=== PATIENT | female | born 1955 | race Caucasian/White ===

== ENCOUNTER 2024-09-03 20:55 | Emergency (ER) | payer OTHER, MEDICAID, SELFPAY ==
[2024-09-03] VITALS (14 sets, daily range): BP systolic 134–200; BP diastolic 81–102; PULSE 75–99; RESP 18–23; TEMP 36.6; O2SAT 89–98; BMI 34.2
--- NOTE | 2024-09-03 21:06 | EKG_ITS ---
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
--- NOTE | 2024-09-03 21:07 | ED_ITS ---
HPI - Abdominal Pain General Chief Complaint: Abdominal Pain Stated Complaint: abd pain Time Seen by Provider: 09/03/24 21:02 Mode of arrival: EMS History of Present Illness HPI narrative: 69-year-old female with history of bipolar disorder, reports remote ovarian cyst related surgery in her 20s, no other abdominopelvic surgeries, had bowel obstruction treated medically about one year ago in [facility], now with central abdominal pain onset 4:00 p.m. today, increasing pain since then, no fevers or chills. No nausea or vomiting. No diarrhea. No black or red stools. Last bowel movement 7:00 p.m. after onset of pain, did not help or increase the pain. No recent antibiotic exposure recalled. No falls, injury, new activities. Pain is somewhat worse with deep breathing. Can not recall prior diagnosis of ulcers or pancreatitis. Denies history of painful urination or frequency of urination. No prior kidney stones. Related Data Home Medications Medication Instructions Recorded Confirmed Vitamin B-1 1 tab 09/03/24 albuterol sulfate 2.5 mg/3 mL 2.5 mg 09/03/24 (0.083 %) solution for nebulization clonazepam 0.5 mg tablet 0.5 mg PO BID 09/03/24 09/03/24 gabapentin 600 mg tablet 600 mg PO BID 09/03/24 09/03/24 lamotrigine 25 mg tablet 50 mg PO BID 09/03/24 09/03/24 quetiapine 50 mg 09/03/24 quetiapine 100 mg tablet 100 mg 09/03/24 Allergies Allergy/AdvReac Type Severity Reaction Status Date / Time erythromycin base Allergy Verified 09/03/24 21:07 oxycodone Allergy Verified 09/03/24 21:07 prednisolone Allergy Verified 09/03/24 21:07 Exam Narrative Exam Narrative: GENERAL: Well-developed patient, in mild distress. HEAD: Atraumatic. Normocephalic. EYES: Pupils equal round and reactive. Extraocular motions intact. No scleral icterus. No injection or drainage. ENT: Nose without bleeding, purulent drainage. Throat without erythema, tonsillar hypertrophy or exudate. Airway patent. NECK: Trachea midline. Non tender CARDIOVASCULAR: Regular rate and rhythm without murmurs, gallops, or rubs. RESPIRATORY: Clear to auscultation. Breath sounds equal bilaterally. No wheezes, rales, or rhonchi. GASTROINTESTINAL: Abdomen obese, soft, non-tender, nondistended. I could not see ventral scars, no hernias. Normal bowel tones without rushes or tinkles. EXTREMITIES: No edema or joint tenderness. BACK: Nontender without deformity or crepitance. No flank tenderness. NEURO: AOx3. Motor functions grossly nonfocal SKIN: No rash or erythema of visible areas Initial Vital Signs Initial Vital Signs: Vital Signs Temperature 97.9 F 09/03/24 21: Pulse Rate 75 09/03/24 21:01 Respiratory Rate 18 09/03/24 21:01 Blood Pressure 178/100 H 09/03/24 21:01 Pulse Oximetry 97 09/03/24 21:01 Oxygen Delivery Method Room Air 09/03/24 21:01 Course Orders Ordered: ED Orders 09/03/24 21:08 Complete Blood Count AUTO DIFF Stat Comprehensive Metabolic Panel Stat Lipase Stat 09/03/24 21:23 Urinalysis and Microscopic Stat 09/03/24 21:45 CT abdomen pelvis w con Stat Discontinued Medications Albuterol (Albuterol 2.5 Mg/3 Ml Neb (Adult)) 2.5 mg INH NOW ONE Stop: 09/03/24 23:09 Last Admin: 09/03/24 23:14 Dose: 2.5 mg Documented By: EMMANUEL Ketorolac Tromethamine (Ketorolac 30 Mg/Ml Vial) 15 mg IV NOW ONE Stop: 09/03/24 21:46 Last Admin: 09/03/24 21:51 Dose: 15 mg Documented By: EMMANUEL Morphine Sulfate (Morphine 4 Mg/Ml Inj) 4 mg IV NOW ONE Stop: 09/03/24 21:16 Last Admin: 09/03/24 21:26 Dose: 4 mg Documented By: EMMANUEL Ondansetron HCl (Ondansetron 4 Mg/2 Ml Inj) 4 mg IV NOW ONE Stop: 09/03/24 21:16 Last Admin: 09/03/24 21:26 Dose: 4 mg Documented By: EMMANUEL Vital Signs Vital signs: Vital Signs - 8 hr 09/03/24 21:01 09/03/24 21:09 09/03/24 21:30 Temperature 97.9 F Pulse Rate 75 77 78 Respiratory Rate 18 23 Blood Pressure 178/100 H 198/81 H 196/102 H Pulse Oximetry 97 98 97 Oxygen Delivery Method Room Air Oxygen Flow Rate 09/03/24 21:34 09/03/24 22:00 09/03/24 22:02 Temperature Pulse Rate 78 84 89 Respiratory Rate 21 23 18 Blood Pressure 200/95 H 179/86 H Pulse Oximetry 97 95 94 Oxygen Delivery Method Oxygen Flow Rate 09/03/24 22:15 09/03/24 22:30 09/03/24 22:31 Temperature Pulse Rate 92 H 93 H Respiratory Rate 22 22 Blood Pressure 143/85 H Pulse Oximetry 92 91 91 Oxygen Delivery Method Nasal Cannula Nasal Cannula Nasal Cannula Oxygen Flow Rate 2 2 1 09/03/24 23:00 09/03/24 23:10 09/03/24 23:30 Temperature Pulse Rate 97 H Respiratory Rate 21 20 Blood Pressure 134/91 H 136/84 Pulse Oximetry 89 L 91 Oxygen Delivery Method Nasal Cannula Nasal Cannula Oxygen Flow Rate 1 2 09/03/24 23:30 09/03/24 23:31 09/03/24 23:57 Temperature Pulse Rate 99 H Respiratory Rate 23 Blood Pressure 141/81 H Pulse Oximetry 92 91 Oxygen Delivery Method Nasal Cannula Oxygen Flow Rate 1 09/03/24 23:57 09/04/24 00:00 09/04/24 00:00 Temperature Pulse Rate 96 H 92 H Respiratory Rate 22 23 Blood Pressure 141/89 H Pulse Oximetry 91 89 L Oxygen Delivery Method Oxygen Flow Rate 09/04/24 00:30 09/04/24 00:31 09/04/24 00:31 Temperature Pulse Rate 97 H 97 H Respiratory Rate 21 21 Blood Pressure 175/90 H Pulse Oximetry 90 L 90 L Oxygen Delivery Method Room Air Oxygen Flow Rate 09/04/24 01:00 09/04/24 01:00 09/04/24 01:30 Temperature Pulse Rate 98 H 99 H Respiratory Rate 19 20 Blood Pressure 171/90 H Pulse Oximetry 93 93 Oxygen Delivery Method Oxygen Flow Rate 09/04/24 01:31 09/04/24 01:31 09/04/24 02:00 Temperature Pulse Rate 99 H Respiratory Rate 20 Blood Pressure 156/94 H 159/88 H Pulse Oximetry 93 Oxygen Delivery Method Oxygen Flow Rate 09/04/24 02:00 09/04/24 02:30 09/04/24 02:31 Temperature Pulse Rate 97 H 99 H Respiratory Rate 20 40 H Blood Pressure 129/76 Pulse Oximetry 93 92 Oxygen Delivery Method Oxygen Flow Rate 09/04/24 02:31 Temperature Pulse Rate 99 H Respiratory Rate 41 H Blood Pressure Pulse Oximetry 92 Oxygen Delivery Method Oxygen Flow Rate MDM - Abdominal Pain Lab Data Attestation: I reviewed the patient's lab results. Lab results narrative: White blood cell count 53944, hemoglobin 14.6, platelets adequate. BUN 20 with creatinine 1.24, glucose 148, electrolytes and serum CO2 unremarkable. Liver functions normal. Lipase normal. Urinalysis negative. 09/03/24 21:08 09/03/24 21:08 Labs: Lab Results 09/03/24 09/03/24 Range/Units 21:08 21:23 WBC 10.3 (4.5-11.0) X10^3/uL RBC 4.69 (4.0-5.2) X10^6/uL Hgb 14.6 (12.0-16.0) g/dL Hct 43.0 (36-46) % MCV 91.8 (80-100) fL MCH 31.1 (26-34) PG MCHC 33.8 (30-36) % RDW 14.2 (11.6-14.8) % Plt Count 201 (150-400) X10^3/uL Neut % (Auto) 71.0 (50-75) % Lymph % (Auto) 22.7 L (25-40) % [place] % (Auto) 5.6 (3-14) % Eos % (Auto) 0.0 L (2-4) % Baso % (Auto) 0.7 (0-2) % Neut # (Auto) 7300 H (0915-1987) /uL Lymph # (Auto) 2300 (8211-4412) /uL [place] # (Auto) 600 (0-900) /uL Eos # (Auto) 0 (0-450) /uL Baso # (Auto) 100 (0-100) /uL Sodium 141 (137-145) mmol/L Potassium 4.0 (3.4-5.1) mmol/L Chloride 107 (98-107) mmol/L Carbon Dioxide 29 (22-32) mmol/L BUN 20 H (7-17) mg/dL Creatinine 1.24 H (0.52-1.04) mg/dL Estimated GFR 48 L (>60) mL/min BUN/Creatinine Ratio 16.1 (6-22) Glucose 148 H (80-110) mg/dL Calcium 9.8 (8.4-10.2) mg/dL Total Bilirubin 0.2 (0.2-1.3) mg/dL AST 27 (14-36) IU/L ALT 22 (<35) IU/L Alkaline Phosphatase 112 (38-126) U/L Total Protein 7.3 (6.3-8.2) g/dL Albumin 4.0 (3.5-5.0) g/dL Globulin 3.3 (1.7-4.1) g/dL Albumin/Globulin Ratio 1.2 (1.0-2.8) Lipase 162 (23-300) U/L Urine Color Yellow Urine Appearance Clear Urine pH 5.5 (4.5-8.0) Ur Specific [place] 1.015 (1.000-1.035) Urine Protein Negative (Negative) Urine Glucose (UA) Negative (Negative) g/dL Urine Ketones Negative (NEGATIVE) Urine Occult Blood Negative (Negative) Urine Nitrate Negative (Negative) Urine Bilirubin Negative (NEGATIVE) Urine Urobilinogen 0.2 (0.2) E.U./dL Ur Leukocyte Esterase Negative (NEGATIVE) Urine RBC None seen (0-5/HPF) Urine WBC None seen (0-5/HPF) Ur Squamous Epith Cells 0-1 /hpf (0-5/HPF) Urine Bacteria None seen (None) Ur Culture Indicated? Cult not indicated Vol Urine Centrifuged 10ml (spun) Imaging Data CT scan - abdomen/pelvis: Radiologist's Impression: [place] [address] CT Scan Report Signed Patient: Katie Arzola MR#: [id number] : 1955 Acct:[id number] Age/Sex: 69 / F Date of Service: 09/03/24 Loc: ED Accession Number: [id number] Procedure: CT abdomen pelvis w con Ordering Provider: Samir Reeves MD PROCEDURE: CT ABDOMEN PELVIS W CON INDICATIONS: abd pain, prior bowel obst TECHNIQUE: After the administration of intravenous contrast, axial sections acquired from the lung bases to the pubic symphysis. Coronal and sagittal reformats were performed. For radiation dose reduction, the following was used: automated exposure control, adjustment of mA and/or kV according to patient size. COMPARISON: None. FINDINGS: Image quality: Diagnostic Lower chest: Unremarkable lung bases Liver: Unremarkable Gallbladder and biliary system: Unremarkable, nondilated Pancreas: No ductal dilation Spleen: Nonenlarged Adrenals: No discrete nodules Kidneys: Moderate parenchymal atrophy bilaterally. No solid mass or hydronephrosis. Vessels and lymph nodes: The main portal vein is patent. No abdominal aortic aneurysm. No pathologic lymphadenopathy by size criteria Bowel and peritoneum: Prominent fluid-filled loops of jejunum and proximal ileum, without imaging evidence of a complete obstruction. Giia-jy-gockawsf fecal loading. Colonic diverticula, without focal inflammation. Nondilated appendix. No ascites. Body wall: Unremarkable Pelvis: Bladder is unremarkable. Slightly prominent endometrium at 5 mm. Bones: Degenerative osseous changes. No aggressive appearing focal osseous abnormality IMPRESSION: Mildly prominent proximal bowel loops with fluid contents, likely enteritis. No evidence of significant bowel obstruction. Fecal loading is [id number]-[id number]-[id number]. Nondilated appendix. Slightly prominent uterine endometrium 5 mm, correlate nonurgent pelvic ultrasound Other findings above. Dictated by: El Cota M.D. on 09/03/2024 at 22:11 Approved by: El Cota M.D. on 09/03/2024 at 22:14 ECG Data Attestation: I personally reviewed and interpreted this ECG as follows: Interpretation: Normal sinus rhythm with rate of 74, no obvious ST segment elevation or depression changes. NV 156, QRS 82, QTC 421. [facility] Narrative Medical decision making narrative: 69-year-old female with history of remote ovarian cyst surgery, no other abdominopelvic surgeries, prior bowel obstruction treated medically last year, with central abdominal pain. Afebrile, sirs screen negative. Minimal tenderness mid abdomen without any ventral hernias obvious. White blood cell count 32687, GFR favorable. CT abdomen and pelvis ordered. Requests pain medication, IV Toradol not helping, IV morphine. CT abdomen and pelvis shows fluid-filled small bowel consistent with enteritis, also colonic stool burden noted, nonobstructive pattern. See radiology report. Low oxygen after morphine, further observed, likely sleep apnea component given body habitus, SVN, weaned off of oxygen, medically cleared for discharge back to nursing facility. Discharge back to her care facility. Further follow up as an outpatient. Return precautions discussed Discharge Plan Departure Patient Disposition: Home Clinical Impression: Abdominal pain, Constipation, Enteritis Instructions: DI for Viral Gastroenteritis -- Adult, DI for Constipation Activity Restrictions/Additional Instructions: Ms Arzola, Prior history of bowel obstruction treated medically. Recent abdominal discomfort. Mild tenderness on examination, but no fever and normal bowel tones, unremarkable vital signs. Blood tests were also unremarkable. CT abdomen and pelvis was performed, which showed no bowel obstruction at this time, some inflammation with fluid filled small bowel, consistent with enteritis (stomach flu). Was also mentioned of a lot of stool in your large colon. These both can cause discomfort in your bowel. Drink plenty of fluids. Consider use of MiraLax gdke-uhz-wvoqhye laxative to help move your bowels, which can cause loose stools and diarrhea but hopefully will help make you feel better once the constipation is treated and resolved. Drink plenty of fluids. Recheck symptoms with your regular doctor if not improved in the next couple of days. Return to this/nearest emergency department for any change worsening symptoms or any concerns prior. Thank you for allowing our team to evaluate you today. Prescriptions: No Action gabapentin 600 mg Tablet 600 mg PO BID albuterol sulfate 2.5 mg /3 mL (0.083 %) Solution For Nebulization 2.5 mg clonazepam 0.5 mg Tablet 0.5 mg PO BID quetiapine 100 mg Tablet 100 mg lamotrigine 25 mg Tablet 50 mg PO BID Vitamin B-1 1 tab quetiapine 50 mg 50 mg Referrals: Veronica Lowry MD [Primary Care Provider] - Stand Alone Forms: Patient Portal/API/Survey
[2024-09-03 21:24] LABS: Add Manual Diff / Slide Review NO; Basophils Absolute Auto 100 /uL (0-100); Basophils Percent Auto 0.7 % (0-2); Eosinophils Absolute Auto 0 /uL (0-450); Hemoglobin 14.6 g/dL (12.0-16.0); Lymphocytes Absolute Auto 2300 /uL (1100-4500); Lymphocytes Percent Auto 22.7 % (25-40); Mean Corpuscular HGB Conc 33.8 % (30-36); Mean Corpuscular Hemoglobin 31.1 PG (26-34); Mean Corpuscular Volume 91.8 fL (80-100); Monocytes Absolute Auto 600 /uL (0-900); Monocytes Percent Auto 5.6 % (3-14); Neutrophils Absolute Auto 7300 /uL (1500-7000); Platelet Count 201 X10^3/uL (150-400); Red Blood Cell Count 4.69 X10^6/uL (4.0-5.2); Red Cell Distribution Width 14.2 % (11.6-14.8); White Blood Cell Count 10.3 X10^3/uL (4.5-11.0)
[2024-09-03] MEDS: MORPHINE 4 MG/ML INJ IV (21:26)
[2024-09-03] MEDS: ONDANSETRON 4 MG/2 ML INJ IV (21:26)
[2024-09-03 21:27] LABS: Alanine Aminotransferase 22 IU/L (<35); Albumin Globulin Ratio 1.2 (1.0-2.8); Alkaline Phosphatase 112 U/L (38-126); Aspartate Aminotransferase 27 IU/L (14-36); BUN Creatinine Ratio 16.1 (6-22); Bilirubin Total 0.2 mg/dL (0.2-1.3); Blood Urea Nitrogen 20 mg/dL (7-17); Calcium 9.8 mg/dL (8.4-10.2); Carbon Dioxide 29 mmol/L (22-32); Chloride 107 mmol/L (98-107); Estimated Glomerular Filt Rate 48 mL/min (>60); Globulin 3.3 g/dL (1.7-4.1); Glucose 148 mg/dL (80-110); HEMOLYSIS < 15 (0-50); Lipase 162 U/L (23-300); Sodium 141 mmol/L (137-145); Total Protein 7.3 g/dL (6.3-8.2)
--- NOTE | 2024-09-03 21:45 | DI.CT.S_ITS ---
PROCEDURE: CT ABDOMEN PELVIS W CON INDICATIONS: abd pain, prior bowel obst TECHNIQUE: After the administration of intravenous contrast, axial sections acquired from the lung bases to the pubic symphysis. Coronal and sagittal reformats were performed. For radiation dose reduction, the following was used: automated exposure control, adjustment of mA and/or kV according to patient size. COMPARISON: None. FINDINGS: Image quality: Diagnostic Lower chest: Unremarkable lung bases Liver: Unremarkable Gallbladder and biliary system: Unremarkable, nondilated Pancreas: No ductal dilation Spleen: Nonenlarged Adrenals: No discrete nodules Kidneys: Moderate parenchymal atrophy bilaterally. No solid mass or hydronephrosis. Vessels and lymph nodes: The main portal vein is patent. No abdominal aortic aneurysm. No pathologic lymphadenopathy by size criteria Bowel and peritoneum: Prominent fluid-filled loops of jejunum and proximal ileum, without imaging evidence of a complete obstruction. Ddrg-ze-drfjognl fecal loading. Colonic diverticula, without focal inflammation. Nondilated appendix. No ascites. Body wall: Unremarkable Pelvis: Bladder is unremarkable. Slightly prominent endometrium at 5 mm. Bones: Degenerative osseous changes. No aggressive appearing focal osseous abnormality IMPRESSION: Mildly prominent proximal bowel loops with fluid contents, likely enteritis. No evidence of significant bowel obstruction. Fecal loading is dqnz-ld-tkpjrmec. Nondilated appendix. Slightly prominent uterine endometrium 5 mm, correlate nonurgent pelvic ultrasound Other findings above. Dictated by: El Cota M.D. on 09/03/2024 at 22:11 Approved by: El Cota M.D. on 09/03/2024 at 22:14
[2024-09-03] MEDS: KETOROLAC 30 MG/ML VIAL 15 MG IV (21:51)
[2024-09-03 21:59] LABS: Appearance Urine UA CLEAR; Bilirubin Urine UA NEGATIVE (NEGATIVE); Color Urine UA YELLOW; Glucose Urine UA NEGATIVE (Negative); Ketones Urine UA NEGATIVE (NEGATIVE); Nitrite Urine UA NEGATIVE (Negative); Occult Blood Urine UA NEGATIVE (Negative); Protein Urine UA NEGATIVE (Negative); Specific Gravity Urine UA 1.015 (1.000-1.035); Urobilinogen Urine UA 0.2 E.U./dL (0.2)
[2024-09-03 22:16] LABS: Bacteria Urine None Seen; Culture Indicated Urine Cult Not Indicated; Leukocyte Esterase Urine UA NEGATIVE (NEGATIVE); RBC Urine None Seen (0-5/HPF); Squamous Epithelial Cell Urine 0-1 /HPF (0-5/HPF); Urine Volume 10mL (spun); WBC Urine None Seen (0-5/HPF); pH Urine UA 5.5 (4.5-8.0)
[2024-09-03] MEDS: ALBUTEROL 2.5 MG/3 ML NEB (ADULT) INH (23:14)
[2024-09-04] VITALS (9 sets, daily range): BP systolic 129–175; BP diastolic 76–94; PULSE 92–99; RESP 19–41; O2SAT 89–93
--- NOTE | 2024-09-04 00:36 | PC.NURSE ---
Attempted to call [facility]. Left message to call back.
--- NOTE | 2024-09-04 02:38 | PC.NURSE ---
Report given to Nurse Riggs at [facility]. Advised them that due to her history they should monitor and follow a Bowel protocol.
== END 2024-09-04 02:59 | disposition home or self-care (01) ==
PROVIDERS: Emergency Provider Emergency Medicine; PCP Internal Medicine
DX: K52.9 Noninfective gastroenteritis and colitis, unspecified (principal); K59.00 Constipation, unspecified; R10.9 Unspecified abdominal pain
CPT/HCPCS: 36415; 74177; 80053; 81001; 83690; 85025; 93005; 96374; 96375; 99285; J1885; J2270; J2405; J7613

== ENCOUNTER → 2024-11-14 12:25 | Outpatient (CLI) | payer OTHER, MEDICAID, SELFPAY ==
--- NOTE | 2024-11-14 12:29 | DI.MRI.S_ITS ---
PROCEDURE: MR SHOULDER RT WO CON INDICATIONS: SHOULDER TECHNIQUE: Noncontrast oblique coronal T2 fast spin echo with fat saturation, oblique sagittal T1 spin echo and T2 fast spin echo with fat saturation, axial T1 spin echo and T2 fast spin echo with fat saturation through the shoulder. COMPARISON: None. FINDINGS: Image quality: Excellent. Rotator cuff: There is low-grade interstitial tear at the posterior footprint of the supraspinatus (8: 14). Mild tendinosis of the supraspinatus and infraspinatus. The teres minor is unremarkable. The subscapularis is unremarkable. Bones and bursae: No significant degenerative changes of the acromioclavicular joint. Type 2 acromion. No os acromiale. No subacromial/subdeltoid bursitis. Severe degenerative changes of the glenohumeral joint with complete chondral denudation of the glenoid, the superior medial humeral head. There is associated extensive subchondral marrow edema of the glenoid. Mild osteophytosis of the humeral head. No acute fracture. Capsule and soft tissues: Circumferential labral tear. No paralabral cyst. Mild tenosynovitis of the extra-articular biceps tendon. The extra-articular biceps tendon is intact. Mild tendinosis of the intra-articular biceps tendon. Small glenohumeral effusion with synovitis. No intra-articular body IMPRESSION: 1. Severe degenerative change of the glenohumeral joint. 2. Low-grade tear of the supraspinatus. 3. Circumferential labral tear. 4. Mild tendinosis of the intra-articular biceps tendon. Dictated by: Maricel Eng M.D. on 11/14/2024 at 15:13 Approved by: Maricel Eng M.D. on 11/14/2024 at 15:21
== END ==
PROVIDERS: PCP Internal Medicine; Referring Provider Orthopaedic Surgery; Visit Provider Orthopaedic Surgery
DX: M25.511 Pain in right shoulder (principal); M75.111 Incomplete rotator cuff tear or rupture of right shoulder, not specified as traumatic; S43.491A Other sprain of right shoulder joint, initial encounter
CPT/HCPCS: 73221

== ENCOUNTER → 2025-03-21 06:24 | Outpatient (ROUT) | payer OTHER, MEDICAID, SELFPAY ==
[2025-03-21 08:03] LABS: Hematocrit 42.2 % (36-46); Hemoglobin 14.5 g/dL (12.0-16.0); Mean Corpuscular HGB Conc 34.4 % (30-36); Mean Corpuscular Hemoglobin 31.4 PG (26-34); Mean Corpuscular Volume 91.3 fL (80-100); Platelet Count 205 X10^3/uL (150-400)
[2025-03-21 08:13] LABS: Hemoglobin A1C% w Est Avg Glu 6.4 % (4.0-6.0)
[2025-03-21 08:28] LABS: Alanine Aminotransferase 35 IU/L (<35); Albumin 4.0 g/dL (3.5-5.0); Albumin Globulin Ratio 1.2 (1.0-2.8); Alkaline Phosphatase 133 U/L (38-126); Blood Urea Nitrogen 24 mg/dL (7-17); Calcium 9.4 mg/dL (8.4-10.2); Carbon Dioxide 24 mmol/L (22-32); Chloride 105 mmol/L (98-107); Estimated Glomerular Filt Rate 47 mL/min (>60); Globulin 3.3 g/dL (1.7-4.1); Glucose 126 mg/dL (70-99); HEMOLYSIS < 15 (0-50); Potassium 4.4 mmol/L (3.4-5.1); Sodium 137 mmol/L (137-145); Total Protein 7.3 g/dL (6.3-8.2)
[2025-03-21 09:00] LABS: Thyroid Stimulating Hormone 0.684 uIU/mL (0.47-4.68)
== END ==
LOC: LAB 06:25
PROVIDERS: PCP Internal Medicine; Visit Provider Registered Nurse
DX: Z79.899 Other long term (current) drug therapy (principal); Z13.1 Encounter for screening for diabetes mellitus; J44.9 Chronic obstructive pulmonary disease, unspecified; I10 Essential (primary) hypertension; F31.32 Bipolar disorder, current episode depressed, moderate
CPT/HCPCS: 36415; 80053; 83036; 84443; 85027

== ENCOUNTER → 2025-06-18 10:41 | Outpatient (CLI) | payer OTHER, SELFPAY ==
--- NOTE | 2025-06-18 | DI.RAD.S_ITS ---
PROCEDURE: FL JOINT INJECTION LARGE RT INDICATIONS: glenohumeral arthritis COMPARISON: None. TECHNIQUE: The indications, alternatives, benefits, risks, and complications of the procedure were explained to the patient. Written informed consent was obtained and placed in the chart. The patient was placed in an appropriate position on the fluoroscopy table, and a site was chosen for percutaneous access under fluoroscopic guidance. The site was prepped and draped in a sterile fashion. Local anesthetic was administered using a 1% lidocaine solution. A hypodermic or spinal needle was then used to access the symptomatic joint. Intra-articular location of the needle tip was confirmed by injecting a small amount of contrast, followed by steroid administration. The needle was then withdrawn, and a bandage applied to the puncture site. FINDINGS: Joint injected: Right shoulder Medications injected: 1 mL of 40 mg/mL Kenalog and 3 mL 0.5% Ropivacaine mixture. Patient's pain before injection: 8 out of 10. Patient's pain after injection: 3 out of 10. Complications: None. IMPRESSION: Successful fluoroscopically guided administration of steroid and anaesthetic solution into the right shoulder joint. Dictated by: Dru Mclean M.D. on 06/18/2025 at 16:48 Approved by: Dru Mclean M.D. on 06/18/2025 at 16:49
[2025-06-18] MEDS: TRIAMCINOLONE 40 MG/ML VIAL INTRA-ARTI (12:42)
[2025-06-18] MEDS: LIDOCAINE 1% 20 ML INJ (12:42)
== END ==
PROVIDERS: PCP Internal Medicine; Referring Provider Orthopaedic Surgery; Visit Provider Orthopaedic Surgery
DX: M19.011 Primary osteoarthritis, right shoulder (principal)
CPT/HCPCS: 20610; 77002

== ENCOUNTER 2025-06-27 05:19 | Emergency (ER) | payer OTHER, SELFPAY ==
[2025-06-27 05:23] VITALS: BP 150/90; PULSE 73; O2SAT 96
[2025-06-27 05:24] VITALS: BP 150/90; PULSE 77; RESP 14; TEMP 36.6; O2SAT 97; BMI 36.1
--- NOTE | 2025-06-27 05:25 | DI.CT.S_ITS ---
PROCEDURE: CT ABDOMEN PELVIS WO CON INDICATIONS: flank pain TECHNIQUE: Axial sections were acquired from the lung bases to the pubic symphysis. Coronal and sagittal reformats were performed. For radiation dose reduction, the following was used: automated exposure control, adjustment of mA and/or kV according to patient size. COMPARISON: [facility], CT, CT ABDOMEN PELVIS W CON, 09/03/2024, 21:52. FINDINGS: Image quality: Diagnostic. Lower Chest: Mild bibasilar atelectasis. Ectasia of the ascending thoracic aorta measuring approximately 4.5 cm in diameter. Coronary atherosclerotic vascular calcifications are noted. URINARY: Right Kidney: No stones or hydronephrosis. Right Ureter: No hydroureter. Left Kidney: Small punctate 2 mm nonobstructing left renal stone. No hydronephrosis. No perinephric stranding. Left Ureter: No hydroureter. Bladder: Normal wall thickness. No stones. ABDOMEN: Liver: No contour-deforming solid mass. There is diffuse hypoattenuation of the liver parenchyma relative to the spleen compatible with hepatic steatosis. Gallbladder: No radiopaque gallstones or wall thickening. Biliary ducts: No biliary dilation. Pancreas: No ductal dilation. Spleen: Size is within normal limits. Adrenal Glands: No adrenal nodules. Stomach and Bowel: Normal colonic caliber, without significant wall thickening. Scattered colonic diverticula without acute inflammation. No evidence for small bowel obstruction or associated inflammatory changes. Normal appendix. Moderate fecal burden seen throughout the colon. Peritoneum: No abnormal intraperitoneal fluid. No free air. Ventral Wall: No hernia. Abdominal Nodes: No enlarged retroperitoneal or mesenteric lymph nodes. Vessels: Aorta and inferior vena cava are normal in size. Atherosclerotic calcifications. PELVIS: Pelvic Organs: Unremarkable. Pelvic Nodes: Unremarkable. Miscellaneous: No inguinal hernias are seen. Bones: Unremarkable. Visualized osseous structures appear intact without acute fracture or focal destructive lesion. No acute compression fractures of the imaged spine. IMPRESSION: CT abdomen and pelvis without acute abnormalities. Punctate 2 mm nonobstructing left renal stone. No hydronephrosis or perinephric stranding. Hepatic steatosis. Moderate fecal burden seen throughout the colon. This may represent constipation. Ectasia of the ascending thoracic aorta measuring 4.5 cm in diameter. No significant discrepancy with the production supervisor off shift radiology preliminary report. Dictated by: Erwin Erickson M.D. on 06/27/2025 at 7:14 Approved by: Erwin Erickson M.D. on 06/27/2025 at 7:19
--- NOTE | 2025-06-27 05:25 | ED.GENADULT ---
HPI - General Adult General Chief complaint: Back Pain/Injury Stated complaint: LLQ flank/back px Time Seen by Provider: 06/27/25 05:23 History of Present Illness HPI narrative: 69-year-old female complains of non traumatic left flank discomfort since yesterday morning, persisting since time of onset, sharp in nature, no radiation to legs. No associated nausea or vomiting or diarrhea. No associated diaphoresis, chest pain, shortness of breath. No painful or frequent urination. No fevers or chills. Had bowel movement yesterday they did not seem to improve or worsening the pain. No injury, trauma, new activities recalled. History of piriformis discomfort, but this feels different. Denies history of inflammatory bowel disease, colitis, diverticulitis. Denies history of kidney stones. No recent antibiotic exposure. Related Data Home Medications ?Medication ?Instructions ?Recorded ?Confirmed Vitamin B-1 1 tab 09/03/24 albuterol sulfate 2.5 mg/3 mL 2.5 mg 09/03/24 (0.083 %) solution for nebulization clonazepam 0.5 mg tablet 0.5 mg PO BID 09/03/24 09/03/24 gabapentin 600 mg tablet 600 mg PO BID 09/03/24 09/03/24 lamotrigine 25 mg tablet 50 mg PO BID 09/03/24 09/03/24 quetiapine 50 mg 09/03/24 quetiapine 100 mg tablet 100 mg 09/03/24 Allergies Allergy/AdvReac Type Severity Reaction Status Date / Time erythromycin base Allergy Verified 09/03/24 21:07 oxycodone Allergy Verified 09/03/24 21:07 prednisolone Allergy Verified 09/03/24 21:07 Patient History Social History Smoking Status: Current every day smoker Exam Narrative Exam Narrative: GENERAL: Well-developed patient, in mild distress. HEAD: Atraumatic. Normocephalic. EYES: Pupils equal round and reactive. Extraocular motions intact. No scleral icterus. No injection or drainage. ENT: No obvious craniofacial swelling or redness. NECK: Trachea midline. Non tender CARDIOVASCULAR: Regular rate and rhythm without murmurs, gallops, or rubs. RESPIRATORY: Clear to auscultation. Breath sounds equal bilaterally. No wheezes, rales, or rhonchi. GASTROINTESTINAL: Obese, mild tenderness left mid quadrant, not particularly tender left upper quadrant or left lower quadrant, no obvious ventral hernias, nondistended, bowel tones unremarkable without rushes or tinkles EXTREMITIES: No edema or joint tenderness. BACK: Nontender without deformity or crepitance. No flank tenderness. NEURO: AOx3. Motor functions grossly nonfocal. SKIN: No rash or erythema of visible areas Initial Vital Signs Initial Vital Signs: Vital Signs Pulse Rate 73 06/27/25 05:23 Blood Pressure 150/90 H 06/27/25 05:23 Pulse Oximetry 96 06/27/25 05:23 Course Orders Ordered: Discontinued Medications Ketorolac Tromethamine (Ketorolac 30 Mg/Ml Vial) 15 mg IV NOW ONE Stop: 06/27/25 05:40 Last Admin: 06/27/25 05:45 Dose: 15 mg Documented By: AUREA Magnesium Citrate (Magnesium Citrate 300 Ml Solution) 150 ml PO NOW ONE Stop: 06/27/25 06:58 Last Admin: 06/27/25 08:07 Dose: 150 ml Documented By: DION Morphine Sulfate (Morphine 4 Mg/Ml Inj) 4 mg IV NOW ONE Stop: 06/27/25 05:41 Last Admin: 06/27/25 05:46 Dose: 4 mg Documented By: AUREA Ondansetron HCl (Ondansetron 4 Mg/2 Ml Inj) 4 mg IV NOW ONE Stop: 06/27/25 05:40 Last Admin: 06/27/25 05:45 Dose: 4 mg Documented By: AUREA Vital Signs Vital signs: Vital Signs - 8 hr 06/27/25 05:23 06/27/25 05:23 06/27/25 05:24 Temperature 97.9 F Pulse Rate 73 77 Respiratory Rate 14 Blood Pressure 150/90 H 150/90 H Pulse Oximetry 96 97 Oxygen Delivery Method Room Air 06/27/25 05:30 06/27/25 05:30 06/27/25 06:07 Temperature Pulse Rate 71 66 Respiratory Rate Blood Pressure 150/94 H Pulse Oximetry 95 93 Oxygen Delivery Method 06/27/25 06:09 06/27/25 06:09 Temperature Pulse Rate 65 Respiratory Rate Blood Pressure 139/78 Pulse Oximetry 96 Oxygen Delivery Method Medical Decision Making Lab Data Lab results reviewed: Yes I reviewed the patient's lab results. Lab results narrative: White blood cell count 67447, hemoglobin 14, platelets adequate. Glucose 170. BUN 27 with creatinine 1.29 both mildly elevated, serum CO2 normal, electrolytes normal. Slight elevation alkaline phosphatase and transaminases, normal total bilirubin. Normal lipase. 06/27/25 05:37 06/27/25 05:37 Labs: Lab Results 06/27/25 06/27/25 Range/Units 05:37 06:35 WBC 10.2 (4.5-11.0) X10^3/uL RBC 4.48 (4.0-5.2) X10^6/uL Hgb 14.0 (12.0-16.0) g/dL Hct 41.5 (36-46) % MCV 92.8 (80-100) fL MCH 31.2 (26-34) PG MCHC 33.6 (30-36) % RDW 14.2 (11.6-14.8) % Plt Count 191 (150-400) X10^3/uL Neut % (Auto) 74.3 (50-75) % Lymph % (Auto) 16.4 L (25-40) % Sharp % (Auto) 8.5 (3-14) % Eos % (Auto) 0.0 L (2-4) % Baso % (Auto) 0.8 (0-2) % Neut # (Auto) 7600 H (0581-8454) /uL Lymph # (Auto) 1700 (2524-1902) /uL Sharp # (Auto) 900 (0-900) /uL Eos # (Auto) 0 (0-450) /uL Baso # (Auto) 100 (0-100) /uL Sodium 140 (137-145) mmol/L Potassium 3.7 (3.4-5.1) mmol/L Chloride 109 H (98-107) mmol/L Carbon Dioxide 23 (22-32) mmol/L BUN 27 H (7-17) mg/dL Creatinine 1.29 H (0.52-1.04) mg/dL Estimated GFR 45 L (>60) mL/min BUN/Creatinine Ratio 20.9 (6-22) Glucose 170 H (70-99) mg/dL Calcium 9.1 (8.4-10.2) mg/dL Total Bilirubin 0.3 (0.2-1.3) mg/dL AST 40 H (14-36) IU/L ALT 48 H (<35) IU/L Alkaline Phosphatase 158 H (38-126) U/L Total Protein 6.9 (6.3-8.2) g/dL Albumin 3.8 (3.5-5.0) g/dL Globulin 3.1 (1.7-4.1) g/dL Albumin/Globulin Ratio 1.2 (1.0-2.8) Lipase 141 (23-300) U/L Urine Color Yellow Urine Appearance Clear Urine pH 5.5 (4.5-8.0) Ur Specific Lowry 1.020 (1.000-1.035) Urine Protein Negative (Negative) Urine Glucose (UA) Negative (Negative) g/dL Urine Ketones Negative (NEGATIVE) Urine Occult Blood Negative (Negative) Urine Nitrate Negative (Negative) Urine Bilirubin Negative (NEGATIVE) Urine Urobilinogen 0.2 (0.2) E.U./dL Ur Leukocyte Esterase 1+ H D (NEGATIVE) Urine RBC None seen (0-5/HPF) Urine WBC 5-10/hpf H (0-5/HPF) Ur Squamous Epith Cells 0-1 /hpf (0-5/HPF) Urine Bacteria Occasional (0-1) (None) Ur Culture Indicated? Specimen cultured Vol Urine Centrifuged 10ml (spun) Urine Dip Bedside Urine Glucose Negative Bedside Urine Bilirubin - Negative Bedside Urine Ketone - Negative Urine Specific Lowry 1.020 Bedside Urine Occult Blood - Negative Bedside Urine pH 6.0 Bedside Urine Protein - Negative Bedside Urine Urobilinogen - Negative Bedside Urine Nitrite - Negative Bedside Urine Leukocytes ++ 125 Esterase Point of care testing: Urine Dip Bedside Urine Glucose Negative Bedside Urine Bilirubin - Negative Bedside Urine Ketone - Negative Urine Specific Lowry 1.020 Bedside Urine Occult Blood - Negative Bedside Urine pH 6.0 Bedside Urine Protein - Negative Bedside Urine Urobilinogen - Negative Bedside Urine Nitrite - Negative Bedside Urine Leukocytes ++ 125 Esterase MDM Narrative Medical decision making narrative: 69-year-old female resident of [facility] with nontraumatic left flank pain since yesterday morning, afebrile, sirs screen negative, mild tenderness left mid quadrant. DDx consider ureteral stone, UTI/pyelo, colitis, diverticulitis, constipation, volvulus, bowel obstruction, musculoskeletal, [employer] etiology, other. Labs pending. Patient quite uncomfortable, amenable to analgesics. IV Toradol, morphine, Zofran. CT abdomen and pelvis noncontrast ordered. Lab data: White blood cell count 35639, hemoglobin 14, platelets adequate. Glucose 170. BUN 27 with creatinine 1.29 both mildly elevated, serum CO2 normal, electrolytes normal. Slight elevation alkaline phosphatase and transaminases, normal total bilirubin. Normal lipase. CT abdomen and pelvis, impressions: ?No acute findings. Signs of constipation. There is fatty infiltration of the liver. ? See tele radiology report. Copy of CT scan provide patient with discussion of results. No acute findings, however there were constipation changes, if this is related to her left-sided abdominal discomfort. Trial of magnesium citrate to try back at home [facility], dispensed magnesium citrate bottle. Advised use of half bottle by mouth, and if no results take 1/4 bottle in 3 hours, and if no results and subsequent 3 hours then take the remaining 1/4 bottle. Could consider Fleet's enema. Patient expressed understanding. Discharged back to nursing facility. Discharge Plan Departure Patient Disposition: Home Clinical Impression: Abdominal pain, Constipation Activity Restrictions/Additional Instructions: Left-sided nontraumatic abdominal pain of unclear cause. No fever, minimal tenderness left side. Labs unremarkable. Urine not convincing for infection, urine culture pending. CT abdomen and pelvis showed no acute changes, did mentioned colonic stool and constipation changes. It is possible the movement of hard stool by your colon could be causing some discomfort. Consider trial of liquid laxative such as magnesium citrate, usual doses 1/2 of the bottle by mouth once your near a bathroom facility, if no loose stool results in 3 hours you can take another 1/4 volume of the bottle, and if no loose stool results in another 3 hours you can take the remaining 1/4 volume of the bottle. Recheck with your regular provider if you are still having discomfort in the next 24-48 hours. Return to this/nearest emergency department for any change worsening symptoms or any concerns prior. Prescriptions: No Action gabapentin 600 mg Tablet 600 mg PO BID albuterol sulfate 2.5 mg /3 mL (0.083 %) Solution For Nebulization 2.5 mg clonazepam 0.5 mg Tablet 0.5 mg PO BID quetiapine 100 mg Tablet 100 mg lamotrigine 25 mg Tablet 50 mg PO BID Vitamin B-1 1 tab quetiapine 50 mg 50 mg Referrals: Veronica Lowry MD [Primary Care Provider, Internal Medicine] Stand Alone Forms: Patient Portal/API
--- OUTSIDE RECORDS SUMMARY | 2025-06-27 05:25 | XMS_ITS | Encounter Summary ---
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 Name Role Phone Unavailable Primary Care Provider Unavailabl e Encounter Details Date Type Department Care Team (Late st Contact Info) Description 06/14/2025 Telephone [facility] [address] [place] [phone] Balta Hernandez MD [address] [place] [address] Social History Tobacco Use Types Packs/Day Years Used Date Smoking Tobacco: Never Assessed Comments Unknown Sex and Gender Information Value Date Recorded Sex Assigned at Not on file Legal Sex Female 3:21 PM PST Gender Identity Not on file Sexual Orientation Not on file documented as of this encounter Miscellaneous Notes * Telephone Encounter - Dianna Galdamez MA - 06/14/2025 10:39 AM PSTSummary: [facility]ala desk spoke with patient on phone, gave pt the phone number for [facility] diagnostic imaging scheduling [phone]. Confirmed we refaxed the orders again this am. Patient also left 2 voicemail msg this am. [facility] did not receive the orders for shoulder injection ordered by Dr. Hernandez. This had been faxed 2 prior times. I called them and they do have referral now. They will reach out to patient to schedule her. documented in this encounter Plan of Treatment Not on file documented as of this encounter Visit Diagnoses Not on filedocumented in this encounter
[2025-06-27 05:30] VITALS: BP 150/94; PULSE 71; O2SAT 95
[2025-06-27 05:44] LABS: Add Manual Diff / Slide Review NO; Hematocrit 41.5 % (36-46); Hemoglobin 14.0 g/dL (12.0-16.0); Lymphocytes Absolute Auto 1700 /uL (1100-4500); Mean Corpuscular HGB Conc 33.6 % (30-36); Mean Corpuscular Hemoglobin 31.2 PG (26-34); Mean Corpuscular Volume 92.8 fL (80-100); Platelet Count 191 X10^3/uL (150-400)
[2025-06-27] MEDS: ONDANSETRON 4 MG/2 ML INJ IV (05:45)
[2025-06-27] MEDS: KETOROLAC 30 MG/ML VIAL 15 MG IV (05:45)
[2025-06-27] MEDS: MORPHINE 4 MG/ML INJ IV (05:46)
[2025-06-27 05:57] LABS: Alanine Aminotransferase 48 IU/L (<35); Albumin 3.8 g/dL (3.5-5.0); Albumin Globulin Ratio 1.2 (1.0-2.8); Alkaline Phosphatase 158 U/L (38-126); Blood Urea Nitrogen 27 mg/dL (7-17); Calcium 9.1 mg/dL (8.4-10.2); Carbon Dioxide 23 mmol/L (22-32); Chloride 109 mmol/L (98-107); Estimated Glomerular Filt Rate 45 mL/min (>60); Globulin 3.1 g/dL (1.7-4.1); Glucose 170 mg/dL (70-99); HEMOLYSIS < 15 (0-50); Lipase 141 U/L (23-300); Potassium 3.7 mmol/L (3.4-5.1); Sodium 140 mmol/L (137-145); Total Protein 6.9 g/dL (6.3-8.2)
[2025-06-27 06:07] VITALS: PULSE 66; O2SAT 93
[2025-06-27 06:09] VITALS: BP 139/78; PULSE 65; O2SAT 96
[2025-06-27 06:48] LABS: Appearance Urine UA CLEAR; Bilirubin Urine UA NEGATIVE (NEGATIVE); Color Urine UA YELLOW; Glucose Urine UA NEGATIVE (Negative); Ketones Urine UA NEGATIVE (NEGATIVE); Leukocyte Esterase Urine UA 1+ (NEGATIVE); Nitrite Urine UA NEGATIVE (Negative); Occult Blood Urine UA NEGATIVE (Negative); Protein Urine UA NEGATIVE (Negative); Specific Gravity Urine UA 1.020 (1.000-1.035); Urobilinogen Urine UA 0.2 E.U./dL (0.2)
[2025-06-27 06:57] LABS: pH Urine UA 5.5 (4.5-8.0)
[2025-06-27 07:00] VITALS: BP 135/65; PULSE 61; O2SAT 94
[2025-06-27 07:00] LABS: Culture Indicated Urine Specimen Cultured
[2025-06-27] MEDS: MAGNESIUM CITRATE 300 ML SOLUTION 150 ML PO (08:07)
--- NOTE | 2025-06-27 08:19 | PC.NURSE ---
Audrey Ulrich delivered pt to [facility], room 114, AUDREY Del Rio accepted her. no problems
== END 2025-06-27 08:17 | disposition home or self-care (01) ==
PROVIDERS: Emergency Provider Emergency Medicine; PCP Internal Medicine
DX: R10.A2 Flank pain, left side (principal); K59.00 Constipation, unspecified
CPT/HCPCS: 36415; 74176; 80053; 81001; 81003; 83690; 85025; 87086; 96374; 96375; 99284; J1885; J2272; J2405